=== PATIENT | male | born 1935 | race Caucasian/White ===

== ENCOUNTER 2018-06-21 09:06 | Emergency (ER) | payer SELFPAY ==
[~2018-06-21] VITALS: Ht 170.2 cm; Wt 68.0 kg
[2018-06-21 10:16] LABS: BASOPHILS ABSOLUTE AUTO 0.03 K/mm3 (0.00-0.23); BASOPHILS PERCENT AUTO 0 % (0-2); EOSINOPHILS ABSOLUTE AUTO 0.01 K/mm3 (0.00-0.68); EOSINOPHILS PERCENT AUTO 0 % (0-6); Hematocrit 42.6 % (37.0-53.0); IMMATURE GRAN ABSOLUTE AUTO 0.03 K/mm3 (0.00-0.10); IMMATURE GRAN PERCENT AUTO 0 % (0-1); LYMPHOCYTES ABSOLUTE AUTO 0.84 K/mm3 (0.84-5.20); LYMPHOCYTES PERCENT AUTO 9 % (21-46); MONOCYTES ABSOLUTE AUTO 0.73 K/mm3 (0.16-1.47); MONOCYTES PERCENT AUTO 8 % (4-13); Mean Corpuscular HGB 30.9 pg (26.0-34.0); Mean Corpuscular HGB Conc 32.9 g/dL (31.5-36.5); Mean Corpuscular Volume 94 fL (80-100); Mean Platelet Volume 10.4 fL (9.1-12.4); NEUTROPHILS ABSOLUTE AUTO 7.64 K/mm3 (1.96-9.15); NEUTROPHILS PERCENT AUTO 82 % (41-73); Platelet Count 130 K/mm3 (150-400); RDW Coefficient Variation 13.4 % (11.7-14.2); RDW Standard Deviation 45.9 fL (35.1-46.3); Red Blood Cell Count 4.53 M/mm3 (4.30-5.90); White Blood Cell Count 9.28 K/mm3 (4.00-11.30)
[2018-06-21 10:24] LABS: Alanine Aminotransfer (ALT/SGP 38 U/L (12-78); Albumin, Blood 3.7 g/dL (3.4-5.0); Albumin/Globulin Ratio 1.2 (0.8-1.8); Alk Phos 80 U/L (50-136); Anion Gap 11 mmol/L (6-16); Aspartate Aminotrans (AST/SGOT 66 U/L (12-37); Bilirubin, Total 1.6 mg/dL (0.1-1.0); Blood Urea Nitrogen 16 mg/dL (8-24); Bun/Creatinine Ratio 21.2 (12.0-20.0); CO2, Blood 27 mmol/L (21-32); Chloride, Blood 103 mmol/L (98-108); Creatinine, Blood 0.76 mg/dL (0.60-1.20); Globulin, Blood 3.1 g/dL (2.2-4.0); Glomerular Filtration Rate >60 (60-); Glucose, Blood 100 mg/dL (70-99); Potassium, Blood 4.1 mmol/L (3.5-5.5); Sodium, Blood 141 mmol/L (136-145); Total Protein, Blood 6.8 g/dL (6.4-8.2); Troponin I <0.015 ng/mL (0.000-0.040)
[2018-06-21 11:03] LABS: Source, Urine Clean Catch
[2018-06-21 11:05] LABS: Bilirubin, Urine Neg (Neg); Blood, Urine 3+ (Neg); Glucose Qualitative, Urine Neg (Neg); Ketones, Urine 3+ (Neg); Leukocyte Esterase, Urine Neg (Neg); Nitrite, Urine Neg (Neg); Protein, Urine 2+ (Neg); Urobilinogen, Urine NORM (Normal)
[2018-06-21 11:11] LABS: Appearance, Urine Clear (Clear); Color, Urine Yellow (P-Yellow)
[2018-06-21 11:15] LABS: Bacteria Not Seen /hpf; Squamous Epithelial Cells Rare /hpf (Few); White Blood Cells, Urine 0-2 /hpf (0-5)
== END 2018-06-21 13:50 | disposition home or self-care (01) ==
LOC: ER 09:06
PROVIDERS: Emergency Medicine
DX: R53.1 Weakness (principal); Z87.891 Personal history of nicotine dependence; W19.XXXA Unspecified fall, initial encounter
CPT/HCPCS: 36415; 70450; 71045; 80053; 81001; 84443; 84484; 85025; 93005; 93010; 96360; 99285-25; J7030

== ENCOUNTER 2022-01-03 16:23 | Inpatient (IN) | payer OTHER ==
[~2022-01-03] VITALS: Ht 165.1 cm; Wt 75.8 kg
[2022-01-03 17:03] LABS: BASOPHILS ABSOLUTE AUTO 0.03 K/mm3 (0.00-0.23); BASOPHILS PERCENT AUTO 0 % (0-2); EOSINOPHILS ABSOLUTE AUTO 0.07 K/mm3 (0.00-0.68); EOSINOPHILS PERCENT AUTO 1 % (0-6); Hematocrit 35.7 % (37.0-53.0); Hemoglobin 11.4 g/dL (13.5-17.5); IMMATURE GRAN PERCENT AUTO 1 % (0-1); LYMPHOCYTES ABSOLUTE AUTO 1.16 K/mm3 (0.84-5.20); LYMPHOCYTES PERCENT AUTO 14 % (21-46); MONOCYTES ABSOLUTE AUTO 0.79 K/mm3 (0.16-1.47); MONOCYTES PERCENT AUTO 9 % (4-13); Mean Corpuscular HGB 28.9 pg (26.0-34.0); Mean Corpuscular HGB Conc 31.9 g/dL (31.5-36.5); Mean Corpuscular Volume 90 fL (80-100); Mean Platelet Volume 10.2 fL (9.1-12.4); NEUTROPHILS ABSOLUTE AUTO 6.23 K/mm3 (1.96-9.15); NEUTROPHILS PERCENT AUTO 74 % (41-73); Platelet Count 336 K/mm3 (150-400); RDW Coefficient Variation 13.7 % (11.7-14.2); RDW Standard Deviation 45.3 fL (35.1-46.3); Red Blood Cell Count 3.95 M/mm3 (4.30-5.90); White Blood Cell Count 8.38 K/mm3 (4.00-11.30)
[2022-01-03 17:10] LABS: Alanine Aminotransfer (ALT/SGP 16 U/L (12-78); Albumin, Blood 2.7 g/dL (3.4-5.0); Albumin/Globulin Ratio 0.8 (0.8-1.8); Alk Phos 78 U/L (50-136); Anion Gap 1 mmol/L (6-16); Aspartate Aminotrans (AST/SGOT 28 U/L (12-37); Bilirubin, Total 0.5 mg/dL (0.1-1.0); Blood Urea Nitrogen 16 mg/dL (8-24); Bun/Creatinine Ratio 18.4 (12.0-20.0); CO2, Blood 32 mmol/L (21-32); Calcium, Blood 8.9 mg/dL (8.5-10.1); Chloride, Blood 107 mmol/L (98-108); Creatinine, Blood 0.87 mg/dL (0.60-1.20); Globulin, Blood 3.4 g/dL (2.2-4.0); Glomerular Filtration Rate >60 (60-); Glucose, Blood 108 mg/dL (70-99); Sodium, Blood 140 mmol/L (136-145); Total Protein, Blood 6.1 g/dL (6.4-8.2)
[2022-01-03 20:52] LABS: Source, Urine Clean Catch
[2022-01-03 21:03] LABS: Appearance, Urine Clear (Clear); Bilirubin, Urine Neg (Neg); Blood, Urine Neg (Neg); Color, Urine Yellow (P-Yellow); Glucose Qualitative, Urine Neg (Neg); Ketones, Urine 2+ (Neg); Leukocyte Esterase, Urine Neg (Neg); Nitrite, Urine Neg (Neg); Protein, Urine Neg (Neg); Specific Gravity, Urine 1.015 (1.003-1.022); Urobilinogen, Urine NORM (Normal); pH, Urine 6.5 (5.0-8.0)
[2022-01-03] MEDS ORDERED: EUTHYROX25 MCG PO (21:19)
--- NOTE | 2022-01-03 23:58 | NUR ---
ADMISSION: PATIENT IS RECIEVED FROM ER VIA STRETCHER. REPORTING PAIN IN R ARM WITH TRANSFER. PATIENT IS CONFUSED, VSS. UNABLE TO COMPLETE MED REC DUE TO CONFUSSION. PATIENT IS NPO PER MD ORDER. PATIENT IS ORIENTED TO ROOM AND CALL BRAND. BED ALARM IS ON FOR SAFETY.
[2022-01-04 00:25] LABS: Influenza A, PCR NEGATIVE (NEGATIVE); Influenza B, PCR NEGATIVE (NEGATIVE); Resp Syncytial Virus, PCR NEGATIVE (NEGATIVE); SARS-Cov-2 (COVID-19) PCR, MMC NEGATIVE (NEGATIVE)
[2022-01-04 05:04] LABS: BASOPHILS ABSOLUTE AUTO 0.03 K/mm3 (0.00-0.23); BASOPHILS PERCENT AUTO 0 % (0-2); EOSINOPHILS ABSOLUTE AUTO 0.06 K/mm3 (0.00-0.68); EOSINOPHILS PERCENT AUTO 1 % (0-6); Hematocrit 34.1 % (37.0-53.0); Hemoglobin 10.8 g/dL (13.5-17.5); IMMATURE GRAN ABSOLUTE AUTO 0.11 K/mm3 (0.00-0.10); IMMATURE GRAN PERCENT AUTO 1 % (0-1); LYMPHOCYTES ABSOLUTE AUTO 1.14 K/mm3 (0.84-5.20); LYMPHOCYTES PERCENT AUTO 12 % (21-46); MONOCYTES ABSOLUTE AUTO 0.94 K/mm3 (0.16-1.47); MONOCYTES PERCENT AUTO 10 % (4-13); Mean Corpuscular HGB 28.3 pg (26.0-34.0); Mean Corpuscular HGB Conc 31.7 g/dL (31.5-36.5); Mean Corpuscular Volume 89 fL (80-100); Mean Platelet Volume 9.7 fL (9.1-12.4); NEUTROPHILS ABSOLUTE AUTO 7.21 K/mm3 (1.96-9.15); NEUTROPHILS PERCENT AUTO 76 % (41-73); Platelet Count 271 K/mm3 (150-400); RDW Coefficient Variation 13.6 % (11.7-14.2); RDW Standard Deviation 45.1 fL (35.1-46.3); Red Blood Cell Count 3.82 M/mm3 (4.30-5.90); White Blood Cell Count 9.49 K/mm3 (4.00-11.30)
[2022-01-04 05:36] LABS: Alanine Aminotransfer (ALT/SGP 12 U/L (12-78); Albumin, Blood 2.4 g/dL (3.4-5.0); Albumin/Globulin Ratio 0.8 (0.8-1.8); Alk Phos 69 U/L (50-136); Anion Gap 5 mmol/L (6-16); Aspartate Aminotrans (AST/SGOT 10 U/L (12-37); Bilirubin, Total 0.5 mg/dL (0.1-1.0); Blood Urea Nitrogen 12 mg/dL (8-24); Bun/Creatinine Ratio 16.3 (12.0-20.0); CO2, Blood 27 mmol/L (21-32); Calcium, Blood 8.3 mg/dL (8.5-10.1); Chloride, Blood 110 mmol/L (98-108); Creatinine, Blood 0.74 mg/dL (0.60-1.20); Glomerular Filtration Rate >60 (60-); Glucose, Blood 99 mg/dL (70-99); Potassium, Blood 3.9 mmol/L (3.5-5.5); Sodium, Blood 142 mmol/L (136-145); Total Protein, Blood 5.4 g/dL (6.4-8.2)
--- NOTE | 2022-01-04 18:19 | NUR ---
SHIFT SUMMARY: NO ACUTE EVENTS. UP IN CHAIR ALMOST ALL DAY. A&O TO SELF, KNOWS HE'S IN THE HOSPITAL BUT DOES NOT KNOW EXACTLY WHERE, KNOWS HIS NIECE CARLOS. NO EVENTS ON TELEMETRY, SB-SR 40'S-60'S. NO CHANGES IN NEURO EXAMS. BEHAVIOR CAN BE A LITTLE INAPPROPRIATE (GRABBING, TOUCHING) BUT IS REDIRECTABLE. HAD NON CONTRAST MRI TODAY, BUT COULD NOT GET CONTRAST PART D/T IV ISSUES. RESCHEDULED FOR TOMORROW. ATE BREAKFAST AND LUNCH BUT SLEPT THROUGH DINNER.
--- NOTE | 2022-01-05 05:22 | NUR ---
SHIFT SUMMARY: NO ACUTE CHANGES. LOW GRADE TEMP. WAS TREATED WITH TYLENOL WITH GOOD EFFECT. CONTINUES TO REPORT RIGHT SHOULDER PAIN, TYLENOL WAS GIVEN WITH GOOD EFFECT. NEW 20 G IV WAS PLACED IN THE L AC. SCREENING FORM WAS FAXED TO MRI FOR CONTRAST PORTION OF STUDY.
--- NOTE | 2022-01-05 17:24 | NUR ---
DAY SHIFT SUMMARY 86 YR OLD PLEASANTLY CONFUSED PT. ADMITTED FOR AMS. BED ALARM IN USE. BILATERAL LOWER EDEMA +1, RAN, TELE WITH SR AT 67, ONE ASSIST TO BSC. CALL LIGHT WITHIN REACH AND ABLE TO CALL APPROPRIATELY. FAMILY AT BEDSIDE. PT REQUEST CALL FROM CARE MANAGEMENT ON THURSDAY TO SPEAK ABOUT POSSIBLE SNF PLACEMENT. FAMILY FEELS PT IS NOT SAFE TO GO BACK HOME ALONE.
--- NOTE | 2022-01-06 05:25 | NUR ---
SHIFT SUMMARY PT VERY CONFUSED THIS EVENING. FREQUENTLY GETTING OUT OF BED AND SETTING OFF BED ALARM. PARANOID. REPORTING OFTEN TO STAFF THAT HE DOESN'T TRUST THEM AND THAT THERE IS "SOME BOLOGNA GOING ON". REORIENTS WITH MUCH CONVINCING BUT BECOMES DISORIENTED AGAIN. PT WOULD NOT KEEP TELEMETRY UNIT ON, HAS HAD IT ON SINCE THE WITH NO EVENTS AND RUNNING SR IN THE 60'S-70'S. DR. BEASLEY NOTIFIED WITH NEW ORDERS TO D/C TELEMETRY. PT SITTING UP IN BED DRINKING COFFEE AND WATCHING TV AT THIS TIME. WILL CONTINUE TO MONITOR.
--- NOTE | 2022-01-06 18:20 | NUR ---
SHIFT SUMMARY PATIENT DENIES PAIN, NAUSEA, AND SHORTNESS OF BREATH. PATIENT IS A SBA WITH A FWW. PATIENT IS A&O TO SELF. PATIENT IS IMPULSIVE AND FORGETFUL, BUT REDIRECTABLE. PATIENT IS PLEASANTLY CONFUSED. PALLIATIVE CARE CONSULTED, FAMILY WOULD LIKE TO PURSUE HOSPICE CARE. FAMILY VISITED MOST OF DAY. PATIENT WORKED WITH PT AND OT. PATIENT DID WELL, JUST NEEDED FREQUENT CUEING. PATIENT IS EATING AND DRINKING WELL. SPEECH WORKED WITH PATIENT, STRAWS ARE OKAY NOW. PATIENT IS PLEASANT AND COOPERATIVE WITH CARE.
--- NOTE | 2022-01-06 19:01 | NUR ---
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 The pt isn't currently having pain or SOB; was admitted with AMS which, according to family he is back at baseline. He does have mild dementia that seems to have exacerbated with the disease process. After much discussion, family and patient have elected to pursue hospice. The family did make clear they would prefer to take pt back home to [facility] with [place] hosp[facility] benefit, however it's unknown if the benefit is comparable in [place]. They are requesting pt being submitted to the [facility] in [facility], along with and long term care administrator care facilities. Family is aware the pt may not find a bed near [place], or may not be able to transfer depending on his condition when submitted in [place]. Monisha at [facility] called Palliative Care office, states there are currently 3 beds available at this time, and she encouraged his submission. Passed the information in it's entirety to MARICRUZ Reaves. Family to f/u with Jelly regarding placement.
--- NOTE | 2022-01-07 09:05 | NUR ---
Rn summary: Patient is pleasantly confused. 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 Unable to reorient. Pt became difficult to redirect, broke IV tubing and was walking in hallway bleeding. Pt returned to room, allan foreman applied at 2300. Pt countinued to untsantiago foreman even though it was tied in different places on bed. Pt was incontinet of urine x1. Assisted to BR for BM. Pt did pull IV out this am. Pt did become more pleasant and cooperative about 0300 and was able to rest 2 hours. Bed alarm on. Report to oncoming shift.
--- NOTE | 2022-01-07 17:54 | NUR ---
SHIFT SUMMARY PATIENT DENIES PAIN, NAUSEA, AND SHORTNESS OF BREATH. PATIENT IS A SBA WITH A FWW. RESTRAINTS DISCONTINUED AT 0815. DR. HUA NOTIFIED OF PATIENT PULLING IV, NEW ORDERS FOR NO IV. ABX CHANGED TO PO. FAMILY VISITED MOST OF DAY. PATIENT A&O TO SELF AND FAMILY. PLEASANTLY CONFUSED. PATIENT DOES NOT FOLLOW DIRECTIONS WELL. PATIENT DOES NOT USE CALL LIGHT AND SETS BED AND CHAIR ALARM OFF FREQUENTLY. PATIENT IS STEADY ON HIS FEET. PATIENT IS EATING AND DRINKING WELL. PATIENT HAD [facility] EVALUATE HIM THIS MORNING. FAMILY IS REQUESTING HOSPICE SERVICES AND PLACEMENT. PATIENT IS PLEASANT AND COOPERATIVE WITH CARE.
--- NOTE | 2022-01-08 04:05 | NUR ---
SHIFT SUMMARY PT ADMIT W/AMS AND BILATERAL LE SWELLING. PT IS DNR. HX OF DEMENTIA, HYPOTHYROID, HALLUCINATIONS, AND LYMPHOMA. CA HAS MET TO LUNGS AND BRAIN. PLAN IS TO D/C PT TO FACILITY WITH HOSPICE. NO IV ACCESS. DIET IS SOFT FOOD. PT CONTINUES TO EXHIBIT CONFUSED BEHAVIOR WITH NONSENSICAL SPEECH. PT IS PLEASANT AND EASILY REDIRECTED. ROOM AIR. REQUIRED ASSISTANCE TO TAKE MEDS, 1 AT A TIME WITH WATER.
--- NOTE | 2022-01-08 04:41 | NUR ---
[facility] - TILE HELPER SHIFT SUMMARY IS IN TILE HELPER NOTES. I HAVE READ HER SUMMARY AND I CONCUR
[2022-01-08] MEDS ORDERED: QUETIAPINE FUMA25 MG PO (04:46)
[2022-01-08] MEDS ORDERED: ACET325 PO (12:32)
[2022-01-08] MEDS ORDERED: DOCU100 PO (12:34)
[2022-01-08] MEDS ORDERED: DEXA2 PO (12:34)
[2022-01-08] MEDS ORDERED: LEVE500 PO (12:35)
--- NOTE | 2022-01-08 17:12 | NUR ---
SHIFT SUMMARY PATIENT DENIES PAIN, NAUSEA, AND SHORTNESS OF BREATH. PATIENT IS A SBA WITH A FWW. PATIENT AMBULATED MULTIPLE TIMES TODAY. PATIENT HAD FAMILY VISIT TODAY. THEY WERE AT BEDSIDE MOST OF SHIFT. PATIENT IS PLEASANTLY CONFUSED. PATIENT HAS BEEN FOLLOWING COMMANDS TODAY, PATIENT IS LESS PARANOID, HAS NOT BEEN SETTING OFF BED/CHAIR ALARM OFF MUCH TODAY. PATIENT SLEPT ON AND OFF THIS SHIFT. PATIENT IS ABLE TO LET US KNOW WHEN HE NEEDS TO USE BATHROOM. PATIENT IS EATING AND DRINKING WELL. PATIENT IS PLEASANT AND COOPERATIVE WITH CARE. PATIENT IS AWAITING PLACEMENT.
--- NOTE | 2022-01-09 04:54 | NUR ---
SHIFT SUMMARY ADMITTED FOR AMS/PNEU. DNR CODE. PLAN IS FOR PLACEMENT W/HOSPICE. HE IS IMPULSIVE AND EXITS THE BED. HE CAN BE REDIRECTED. 1 ASSIST W/FWW. RX ONE AT A TIME W/H2O. HX OF DEMENTIA. [facility] PT. NO NEW CONCERNS THIS SHIFT.
[2022-01-09 16:05] LABS: Influenza A, PCR NEGATIVE (NEGATIVE); Influenza B, PCR NEGATIVE (NEGATIVE); Resp Syncytial Virus, PCR NEGATIVE (NEGATIVE); SARS-Cov-2 (COVID-19) PCR, MMC NEGATIVE (NEGATIVE)
--- NOTE | 2022-01-09 18:08 | NUR ---
SHIFT SUMMARY PATIENT IS ALERT AND ORIENTED TO SELF. PATIENT HAS HAD NO ACUTE EVENTS THIS SHIFT. VITAL SIGNS REVIEWED. PATIENT HAS NO COMPLAINTS OF PAIN, NAUSEA, SOB OR VOMITTING THIS SHIFT. PATIENT WAS PICKED UP BY [facility] TO TRANSFER PATIENT TO [facility].
== END 2022-01-09 17:06 | disposition hospice, inpatient (51) | DRG 374 ==
LOC: ER 16:23 → MEDS 22:45 → ENPENDDIS 01-08 16:41 → MEDS 01-09 08:00
PROVIDERS: Emergency Medicine; Student in an Organized Health Care Education/Training Program; ADMIT Internal Medicine
DX: C78.6 Secondary malignant neoplasm of retroperitoneum and peritoneum (principal); G93.6 Cerebral edema; J18.9 Pneumonia, unspecified organism; G92.8 Other toxic encephalopathy; C79.31 Secondary malignant neoplasm of brain; C34.31 Malignant neoplasm of lower lobe, right bronchus or lung; C79.89 Secondary malignant neoplasm of other specified sites; Z20.822 Contact with and (suspected) exposure to COVID-19; Z51.5 Encounter for palliative care; D63.0 Anemia in neoplastic disease; Z66 Do not resuscitate; E03.9 Hypothyroidism, unspecified; G30.9 Alzheimer's disease, unspecified; F02.80 Dementia in other diseases classified elsewhere, unspecified severity, without behavioral disturbance, psychotic disturbance, mood disturbance, and anxiety; Z87.891 Personal history of nicotine dependence
CPT/HCPCS: 0241U; 36415; 70450; 70551; 70552; 71045; 71260; 73070; 74177; 80053; 81003; 83605; 83880; 84443; 85025; 87040; 92526; 92610; 96365; 96366; 96375; 96376; 97110; 97112; 97116; 97161; 97166; 97530; 97535; 99285-25; A9270; A9579; J0456; J0696; J1953; J7030; J7040; J7050; Q9967